=== PATIENT | male | born 1990 | race Caucasian/White ===

== ENCOUNTER 2016-12-19 08:40 | Emergency (ER) | payer SELFPAY | END 2016-12-19 09:12 | disposition home or self-care (01) | LOC: D.ER 08:40 | DX: S01.01XA Laceration without foreign body of scalp, initial encounter (principal); W27.8XXA Contact with other nonpowered hand tool, initial encounter; Y93.89 Activity, other specified; Y92.89 Other specified places as the place of occurrence of the external cause ==